=== PATIENT | male | born 1985 | race Asian ===

== ENCOUNTER 2017-03-21 10:34 | Day surgery (SDC) | payer BC ==
[~2017-03-21 10:34] MED LIST: PROPOFOL INJ 200 MG/20 ML VIAL IV ONE
--- NOTE | 2017-03-21 13:55 | Operative Report ---
Operative Report DATE OF SURGERY: 03/21/17 Operative Report: The risks, benefits and alternatives of the procedure including risks of bleeding, perforation requiring surgery are explained to the patient detail and informed consent was obtained. Patient is brought back to the endoscopy suite and placed in the left, lateral decubital position. Timeout was called. Propofol medications administered. A rectal examination was done which did not reveal any masses, tears or fissures. An Olympus video scope was inserted into the patient's rectum the scope was then carefully guided all the way to the cecum. The cecum was identified by the usual anatomical landmarks including the ileocecal valve as well as the appendiceal office. Photodocumentation is obtained. Intubation of the terminal ileum is done. The scope was then sequentially pulled back via the rest segments of the colon including the ascending colon, hepatic flexure, transverse colon, splenic flexure, descending colon and finding to the rectosigmoid portions of the colon. Retroflexion maneuver was performed. PREOPERATIVE DIAGNOSIS: History of inflammation in the terminal ileum for follow -up possible Crohn's disease. POSTOPERATIVE DIAGNOSIS: Nodular, terminal ileitis status post biopsy OPERATION: Colonoscopy with biopsy SURGEON: YADIRA AGUERO ANESTHESIA: LMAC TISSUE REMOVED OR ALTERED: Terminal ileal specimens obtained COMPLICATIONS: None. ESTIMATED BLOOD LOSS: None. INTRAOPERATIVE FINDINGS: As described above. PROCEDURE: Patient tolerated procedure well. No immediate postprocedure complications are noted. Patient discharged in good condition. Discharge date 03/21/2017. Discharge diet: Regular. Discharge activity: Regular. 2-3 week follow-up to discuss findings. Patient is instructed to call the office or proceed to the emergency room should there be any further problems or questions. We will wait on biopsies.
[2017-03-21 14:14] VITALS: BP 114/81
== END 2017-03-21 14:00 | disposition home or self-care (01) ==
LOC: END 10:34 → EDBD 14:00
PROVIDERS: ATTEND Internal Medicine Gastroenterology
PROC: 0DBB8ZX Excision of Ileum, Via Natural or Artificial Opening Endoscopic, Diagnostic (ICD-10-PCS; principal; 2017-03-21 14:00)
DX: K52.9 Noninfective gastroenteritis and colitis, unspecified (principal); K50.00 Crohn's disease of small intestine without complications; K21.9 Gastro-esophageal reflux disease without esophagitis; Z87.891 Personal history of nicotine dependence; Z79.899 Other long term (current) drug therapy
CPT/HCPCS: 45380; 88305 ×2; J2704; 810